=== PATIENT | female | born 1980 | race Caucasian/White ===

== ENCOUNTER 2016-06-17 13:11 | Emergency (ER) | payer OTHER ==
[~2016-06-17] VITALS: Ht 160 cm; Wt 96.0 kg
[~2016-06-17 13:11] MED LIST: BCPILLS PO
[2016-06-17] MEDS ORDERED: SODIUM CHLORIDE 0.9% 1000ML 1,000 ML IV STA (13:15)
[2016-06-17 13:22] VITALS: TEMP 37; Ht 160 cm; Wt 96.0 kg
--- NOTE | 2016-06-17 13:29 | EMERGENCY ROOM VISIT NOTE ---
History Report prepared by Shewrin: Akiko Stinson Under the Supervision of: Dr. Venkat Silverio D.O. First contact with patient: 13:13 Chief Complaint: OVERDOSE (INTENTIONAL) Stated Complaint: OVERDOSE History of Present Illness The patient is a 35 year old female who presents to the Emergency Room with complaints of a sudden intentional drug overdose that occurred around 1130 today. The patient's boyfriend states that the patient has a history of bipolar and manic depression. He states that he additionally has a history of bipolar disorder and states that the two of them got in to an argument. The patient's boyfriend states that the patient is on Lexapro 20 mg daily and had a 90 day supply filled on 05/13/16. He states that over the last few days, the patient has not taken her medication. The patient's boyfriend states that at 1130 today, the patient texted him and said that she took a one month supply of her Lexapro. He states that the prescription bottle is now empty and is unsure if she took all the medications or flushed the rest. The patient's boyfriend states that the patient has been refusing to tell him exactly what happened. He states that the patient is on Ambien and other sleep aids. The patient denies any alcohol use. Source of History: patient, spouse/significant other (boyfriend) Onset: 1130 Position: other (global) Quality: other (overdose) Timing: other (sudden intentional) Review of Systems See HPI for pertinent positives & negatives. A total of 10 systems reviewed and were otherwise negative. Past Medical & Surgical Medical Problems: (1) Anxiety (2) Depression (3) Kidney stones (4) PTSD (post-traumatic stress disorder) Family History Cancer Diabetes mellitus Gallbladder disease Heart disease Hypertension Social History Smoking Status: Never Smoker Marital Status: single Housing Status: lives with family, lives with roommate Occupation Status: unemployed Current/Historical Medications Scheduled Alprazolam (Xanax), 0.25 MG PO BID Escitalopram Oxalate (Lexapro), 20 MG PO HS Simvastatin (Zocor), 20 MG PO HS Zolpidem Tartrate (Ambien), 10 MG PO HS Allergies Coded Allergies: Diphenhydramine (Verified Allergy, Unknown, Facial and throat swelling as well as hives, 06/17/16) Physical Exam Vital Signs Date Time Temp Pulse Resp B/P Pulse Ox O2 Delivery O2 Flow Rate FiO2 06/17/16 16:52 76 16 131/86 98 Room Air 06/17/16 14:52 96 18 118/97 97 06/17/16 13:35 96 Room Air 06/17/16 13:22 37.0 117 16 116/97 95 Room Air 06/17/16 13:21 105 Physical Exam GENERAL: Patient is awake, alert, anxious appearing. Does not appear to be in pain. EYES: The conjunctivae are clear. The pupils are round and reactive. EARS, NOSE, MOUTH AND THROAT: The nose is without any evidence of any deformity. Mucous membranes are moist tongue is midline NECK: The neck is nontender and supple. RESPIRATORY: Normal respiratory effort is noted there is no evidence of wheezing rhonchi or rales CARDIOVASCULAR: Regular rate and rhythm noted there no murmurs rubs or gallops normal S1 normal S2 GASTROINTESTINAL: The abdomen is soft. Bowel sounds are present in all quadrants. Abdomen is nontender MUSCULOSKELETAL/EXTREMITIES: There is no evidence of gross deformity full range of motion is noted in the hips and shoulders SKIN: There is no obvious evidence of any rash. There are no petechiae, pallor or cyanosis noted. NEUROLOGIC: Patient is awake alert and oriented x3 strength is symmetric patellar reflexes are 2+ bilaterally PSYCH: Anxious and guarded appearing, does not answer questions appropriately. Affect is flat. Patient is depressed admits to suicidal ideation. Very vague and will not answer questions appropriately. Makes poor eye contact at times. Medical Decision & Procedures ER Provider Diagnostic Interpretation: X-ray results as stated below per interpretation by me and the radiologist. CHEST ONE VIEW PORTABLE CLINICAL HISTORY: Overdose COMPARISON STUDY: No previous studies for comparison. FINDINGS: Lung volumes are mildly diminished. No consolidation is identified. There is no pneumothorax or pleural effusion. Cardiac size is normal. Mediastinal contours are normal. IMPRESSION: 1. No acute cardiopulmonary findings. 2. Mildly diminished lung volumes. Electronically signed by: Toby Mukherjee M.D. 06/17/2016 1:29 PM Dictated Date/Time: 06/17/2016 1:28 PM Laboratory Results 06/17/16 13:40 Red Blood Count 4.72, Mean Corpuscular Volume 85.6, Mean Corpuscular Hemoglobin 28.8, Mean Corpuscular Hemoglobin Concent 33.7, Mean Platelet Volume 10.7, Neutrophils (%) (Auto) 73.0, Lymphocytes (%) (Auto) 20.7, Monocytes (%) (Auto) 4.4, Eosinophils (%) (Auto) 1.5, Basophils (%) (Auto) 0.2, Neutrophils # (Auto) 3.96, Lymphocytes # (Auto) 1.12, Monocytes # (Auto) 0.24, Eosinophils # (Auto) 0.08, Basophils # (Auto) 0.01 06/17/16 13:40 Test 06/17/16 13:20 06/17/16 13:40 06/17/16 13:45 Urine Color YELLOW Urine Appearance CLEAR (CLEAR) Urine pH 7.0 (4.5-7.5) Urine Specific [place] 1.019 (1.000-1.030) Urine Protein NEG (NEG) Urine Glucose (UA) NEG (NEG) Urine Ketones NEG (NEG) Urine Occult Blood NEG (NEG) Urine Nitrite NEG (NEG) Urine Bilirubin NEG (NEG) Urine Urobilinogen NEG (NEG) Urine Leukocyte Esterase NEG (NEG) White Blood Count 5.42 K/uL (4.8-10.8) Red Blood Count 4.72 M/uL (4.2-5.4) Hemoglobin 13.6 g/dL (12.0-16.0) Hematocrit 40.4 % (37-47) Mean Corpuscular Volume 85.6 fL (80-100) Mean Corpuscular Hemoglobin 28.8 pg (25-34) Mean Corpuscular Hemoglobin Concent 33.7 g/dl (32-36) Platelet Count 220 K/uL (130-400) Mean Platelet Volume 10.7 fL (7.4-10.4) Neutrophils (%) (Auto) 73.0 % Lymphocytes (%) (Auto) 20.7 % Monocytes (%) (Auto) 4.4 % Eosinophils (%) (Auto) 1.5 % Basophils (%) (Auto) 0.2 % Neutrophils # (Auto) 3.96 K/uL (1.4-6.5) Lymphocytes # (Auto) 1.12 K/uL (1.2-3.4) Monocytes # (Auto) 0.24 K/uL (0.11-0.59) Eosinophils # (Auto) 0.08 K/uL (0-0.5) Basophils # (Auto) 0.01 K/uL (0-0.2) RDW Standard Deviation 40.6 fL (36.4-46.3) RDW Coefficient of Variation 13.0 % (11.5-14.5) Immature Granulocyte % (Auto) 0.2 % Immature Granulocyte # (Auto) 0.01 K/uL (0.00-0.02) Prothrombin Time 10.3 SECONDS (9.0-12.0) Prothromb Time International Ratio 1.0 (0.9-1.1) Activated Partial Thromboplast Time 24.7 SECONDS (21.0-31.0) Partial Thromboplastin Ratio 1.0 Anion Gap 9.0 mmol/L (3-11) Est Creatinine Clear Calc Drug Dose 104.6 ml/min Estimated GFR () 106.7 Estimated GFR (Non- 92.1 BUN/Creatinine Ratio 10.4 (10-20) Calcium Level 9.0 mg/dl (8.5-10.1) Total Bilirubin 0.3 mg/dl (0.2-1) Direct Bilirubin < 0.1 mg/dl (0-0.2) Aspartate Amino Transf (AST/SGOT) 24 U/L (15-37) Alanine Aminotransferase (ALT/SGPT) 49 U/L (12-78) Alkaline Phosphatase 64 U/L (45-117) Total Creatine Kinase 101 U/L (26-192) Troponin I < 0.015 ng/ml (0-0.045) Total Protein 7.6 gm/dl (6.4-8.2) Albumin 3.9 gm/dl (3.4-5.0) Lipase 106 U/L (73-393) Human Chorionic Gonadotropin, Qual NEG (NEG) Salicylates Level < 1.7 mg/dl (2.8-20) Acetaminophen Level < 2 ug/ml (10-30) Ethyl Alcohol mg/dL < 3.0 mg/dl (0-3) Urine Opiates Screen NEG (NEG) Urine Methadone, Qualitative NEG (NEG) Urine Barbiturates NEG (NEG) Urine Phencyclidine (PCP) Level NEG (NEG) Ur Amphetamine/Methamphetamine NEG (NEG) MDMA (Ecstasy) Screen NEG (NEG) Urine Benzodiazepines Screen NEG (NEG) Urine Cocaine Metabolite NEG (NEG) Urine Marijuana (THC) NEG (NEG) Laboratory results per my review. Medications Administered Medications (Trade) Dose Ordered Sig/Carissa Route Start Time Stop Time Status Last Admin Dose Admin Sodium Chloride (Nss 1000ml) 1,000 ml @ 999 mls/hr Q1H1M STAT IV 06/17/16 13:15 06/17/16 14:15 DC 06/17/16 13:55 999 MLS/HR ECG Indication: toxicologic Rate (beats per minute): 90 Rhythm: normal sinus Findings: no ectopy, other (no actue ST segment abnormalities) Comparison ECG Date: no prior available ED Course 1315: The patient was evaluated in room C1B. A complete history and physical examination were performed. Ordered Sodium Chloride 1000 ml @ 999 mls/hr IV. 1500: The psych case aide is working on placement for the patient. 1727: I discussed the patients case with Poison Control. They state that if the patient continues to be asymptomatic, she is medically clear. 1745: The patient was accepted at [facility] for further mental health care. Medical Decision Differential diagnosis: Etiologies such as mood disorder, infection, hypoglycemia, electrolyte abnormalities, cardiac sources, intracerebral event, toxicologic, neurologic, as well as others were entertained. Nursing notes reviewed. Additional history is obtained from the prehospital personnel. Additional history is obtained from the patient's significant other. The patient is a 35-year-old female who presented to the emergency department for an evaluation of mental health problems. The patient sent a text message to her significant other stating that she took an overdose of her psychiatric medication. She presented to the emergency department by ambulance. The significant other brought the pill bottles and she had an empty pill bottle from her psychiatric medication which was filled on May of this year. The patient was medically cleared in the emergency department. She was treated with IV fluids. I discussed the patient's laboratory results with her. I also discussed his case with the Poison Control Center. At this time they feel the patient is medically cleared and she is been asymptomatic during her time in the emergency department. I discussed his case with the mental health case aide in the emergency department. She was able to make a referral for the patient and she was accepted for inpatient management at [facility] for further treatment. Impression Primary Impression: Depression Additional Impressions: Suicidal ideation Suicide gesture Medication overdose Scribe Attestation The scribe's documentation has been prepared under my direction and personally reviewed by me in its entirety. I confirm that the note above accurately reflects all work, treatment, procedures, and medical decision making performed by me. Departure Information Dispostion Mental Health Acute Care Referrals No Doctor, Assigned (PCP) Problem Qualifiers
[2016-06-17 13:33] LABS: URINE APPEARANCE CLEAR (CLEAR); URINE BILIRUBIN NEG (NEG); URINE COLOR YELLOW; URINE NITRITE NEG (NEG); URINE SPECIFIC GRAVITY 1.019 (1.000-1.030); UROBILINOGEN NEG (NEG)
[2016-06-17 13:35] VITALS: O2SAT 96
[2016-06-17 13:36] LABS: MANUAL MICROSCOPIC REQUIRED? NO; REVIEW REQ? NO
[2016-06-17 14:08] LABS: BASO % 0.2 %; BASO ABS # 0.01 K/uL (0-0.2); COMPLETE YES; EOS % 1.5 %; HEMATOCRIT 40.4 % (37-47); IG% 0.2 %; LYMPH % 20.7 %; LYMPH ABS # 1.12 K/uL (1.2-3.4); MEAN CELL VOLUME 85.6 fL (80-100); MEAN CORPUSCULAR HEMOGLOBIN 28.8 pg (25-34); MEAN CORPUSCULAR HGB CONC 33.7 g/dl (32-36); MEAN PLATELET VOLUME 10.7 fL (7.4-10.4); MONO % 4.4 %; PLATELET COUNT 220 K/uL (130-400); RED BLOOD COUNT 4.72 M/uL (4.2-5.4); WHITE BLOOD COUNT 5.42 K/uL (4.8-10.8)
[2016-06-17 14:13] LABS: PROTHROMBIN TIME (PATIENT) 10.3 SECONDS (9.0-12.0)
[2016-06-17 14:30] LABS: ALT/SGPT 49 U/L (12-78); BLOOD UREA NITROGEN 9 mg/dl (7-18); BUN/CREATININE RATIO 10.4 (10-20); CARBON DIOXIDE 26 mmol/L (21-32); CHLORIDE 106 mmol/L (98-107); CREATININE 0.82 mg/dl (0.60-1.20); GLUCOSE 113 mg/dl (70-99); POTASSIUM 3.8 mmol/L (3.5-5.1); PREG INTERNAL NEGATIVE QC NEG CLEAR BACKGROUND; PREG INTERNAL POSITIVE QC POS CONTROL LINE; SODIUM 141 mmol/L (136-145)
[2016-06-17 14:35] LABS: ALKALINE PHOSPHATASE 64 U/L (45-117); AST/SGOT 24 U/L (15-37)
[2016-06-17 14:45] LABS: ACETAMINOPHEN < 2 ug/ml (10-30)
[2016-06-17 14:48] LABS: BENZODIAZEPINE, URINE NEG (NEG); COCAINE,URINE NEG (NEG); PHENCYCLIDINE, URINE NEG (NEG)
[2016-06-17] MEDS ORDERED: ACETAMINOPHEN 500 MG TAB PO STA (18:49)
[2016-06-17 19:09] VITALS: BP 131/85; PULSE 90; O2SAT 99
[2016-06-17] MEDS ORDERED: ESCI1TAB10 PO (21:36)
[2016-06-17] MEDS ORDERED: ALPR-411 PO (21:36)
[2016-06-17] MEDS ORDERED: ZOLP10TA PO (21:36)
[2016-06-17] MEDS ORDERED: SIMV10TA2 PO (21:36)
== END 2016-06-17 19:35 ==
LOC: EDBD 13:11 → C.EDC 13:12 → C.EDA 19:35
DX: F32.9 Major depressive disorder, single episode, unspecified (principal); T43.92XA Poisoning by unspecified psychotropic drug, intentional self-harm, initial encounter; F41.9 Anxiety disorder, unspecified; Z79.899 Other long term (current) drug therapy; Z83.3 Family history of diabetes mellitus; Z82.49 Family history of ischemic heart disease and other diseases of the circulatory system